=== PATIENT | male | born 1990 | race Caucasian/White ===

== ENCOUNTER 2023-07-31 17:44 | Emergency (ER) | payer BC ==
[2023-07-31] MEDS ORDERED: DIPHENHYDRAMINE 50 MG/ML VIAL ONE (18:17)
[2023-07-31] MEDS ORDERED: dexAMETHasone 10 MG/ML VIAL ONE (18:17)
[2023-07-31] MEDS ORDERED: FAMOTIDINE 20 MG/2 ML VIAL IV ONE (18:17)
[2023-07-31] MEDS ORDERED: NA CHLORIDE 0.9% 1,000 ML ONE (18:18)
[2023-07-31 18:23] LABS: Absolute Lymphocytes (CBC) 2.2 K/uL (0.7-4.9); Hematocrit 35.6 % (39.6-49.0); Lymphocytes % 35.9 % (15.3-44.8); MCV 82.4 fL (80-100); MPV 7.7 fL (7.6-11.3); Platelets 234 thou/uL (152-406); RBC Red Blood Cell Count 4.32 M/uL (4.33-5.43)
--- NOTE | 2023-07-31 18:24 | RAD REPORT ---
EXAM DESCRIPTION: Jordan Single View07/31/2023 6:17 pm CLINICAL HISTORY: Bilateral leg swelling COMPARISON: none FINDINGS: The lungs appear clear of acute infiltrate. The heart is normal size IMPRESSION: No acute abnormalities displayed
[2023-07-31 18:44] LABS: Magnesium 2.4 mg/dL (1.6-2.4); Potassium 3.6 mEq/L (3.5-5.1); Troponin High Sensitivity 6.7 pg/mL (<58.9)
--- NOTE | 2023-07-31 18:50 | ER ---
Nurse's Notes [facility] Name: Niko Greene Age: 33 yrs Sex: Male : 1990 Arrival Date: 07/31/2023 Time: 17:44 Bed 12 Private MD: Diagnosis: Urticaria, unspecified;Edema, unspecified Presentation: 07/31 17:57 Chief complaint: Patient states: Bilateral leg swelling, itching and redness onset cm10 Sunday. Coronavirus screen: Vaccine status: Patient reports being unvaccinated. Client denies travel out of the [place] in the last 14 days. Ebola Screen: Patient denies travel to an Ebola-affected area in the 21 days before illness onset. No symptoms or risks identified at this time. Initial Sepsis Screen: Does the patient meet any 2 criteria? No. Patient's initial sepsis screen is negative. Does the patient have a suspected source of infection? No. Patient's initial sepsis screen is negative. Risk Assessment: Do you want to hurt yourself or someone else? Patient reports no desire to harm self or others. Onset of symptoms was July 31, 2023. 17:57 Method Of Arrival: Ambulatory cm10 17:57 Acuity: JUAN 3 cm10 Historical: - Allergies: 17:58 No Known Allergies; cm10 - PMHx: 17:58 None; cm10 - Immunization history:: Adult Immunizations unknown. - Social history:: Smoking status: Patient denies any tobacco usage or history of. Screenin:[address] [facility] ED Fall Risk Assessment (Adult) History of falling in the last 3 months, mb9 including since admission No falls in past 3 months (0 pts) Confusion or Disorientation No (0 pts) Intoxicated or Sedated No (0 pts) Impaired Gait No (0 pts) Mobility Assist Device Used No (0 pt) Altered Elimination No (0 pt) Score/Fall Risk Level 0 - 2 = Low Risk Oriented to surroundings, Maintained a safe environment, Educated pt \T\ family on fall prevention, incl call for assistance when getting out of bed. Abuse screen: Denies threats or abuse. Nutritional screening: No deficits noted. Tuberculosis screening: No symptoms or risk factors identified. Assessment: 18:25 General: Appears in no apparent distress. Behavior is calm, cooperative, appropriate mb9 for age. Pain: Denies pain. Neuro: Rogers Agitation-Sedation Scale (RASS): 0 - Alert and Calm Level of Consciousness is awake, alert, obeys commands, Oriented to person, place, time, situation, Appropriate for age. Cardiovascular: Denies chest pain, shortness of breath, Heart tones S1 S2 present Patient's skin is warm and dry. Respiratory: Airway is patent Respiratory effort is even, unlabored, Respiratory pattern is regular, symmetrical, Breath sounds are clear bilaterally. GI: Abdomen is flat, non-distended, Bowel sounds present X 4 quads. Abd is soft and non tender X 4 quads. : No signs and/or symptoms were reported regarding the genitourinary system. EENT: No signs and/or symptoms were reported regarding the EENT system. Derm: Skin is pink, warm \T\ dry. Musculoskeletal: Swelling present in right leg and left leg. 19:03 Reassessment: No changes from previously documented assessment. Patient and/or family mb9 updated on plan of care and expected duration. Pain level reassessed. Patient is alert, oriented x 3, equal unlabored respirations, skin warm/dry/pink. Vital Signs: 17:57 BP 121 / 65; Pulse 62; Resp 18; Temp 98.2; Pulse Ox 100% ; Weight 77.11 kg; Height 5 cm10 ft. 10 in. ; Pain 0/10; 19:03 BP 115 / 62; Pulse 60; Resp 16; Pulse Ox 100% on R/A; Pain 0/10; mb9 17:57 Body Mass Index 24.39 (77.11 kg, 177.8 cm) cm10 17:57 Pain Scale: Adult cm10 19:03 Pain Scale: Adult mb9 ED Course: 17:49 Patient arrived in ED. mr 17:50 Shira Kim, MIKIE [facility]. kb 17:50 Stephen Ornelas MD is Attending Physician. kb 17:58 Triage completed. cm10 17:58 Arm band placed on Patient placed in an exam room, on a stretcher. cm10 18:00 Inserted saline lock: 20 gauge in right antecubital area, using aseptic technique. mb9 Blood collected. 18:00 EKG done, by ED staff, reviewed by Shira DELUNA. mb9 18:19 XRAY Chest (1 view) In Process Unspecified. EDMS 18:24 Katlyn New, RN is Primary Nurse. mb9 18:24 Placed in gown. Bed in low position. Call light in reach. Side rails up X 1. Client mb9 placed on continuous cardiac and pulse oximetry monitoring. NIBP monitoring applied. cardiac monitor on. 18:24 Basic Metabolic Panel Sent. mb9 18:24 Magnesium Sent. mb9 18:24 NT PRO-BNP Sent. mb9 18:24 Troponin HS Sent. mb9 18:26 No provider procedures requiring assistance completed. mb9 19:03 IV discontinued, intact, bleeding controlled, No redness/swelling at site. Pressure mb9 dressing applied. Administered Medications: 18:02 Drug: NS 0.9% IV 1000 ml IV at 1000 ml once Route: IV; Rate: 1000 ml; Site: right mb9 antecubital; 19:04 Follow up: Response: No adverse reaction; IV Status: Completed infusion mb9 18:08 Drug: Decadron - Dexamethasone IVP 10 mg IVP once Route: IVP; Site: right antecubital; mb9 19:03 Follow up: Response: No adverse reaction mb9 18:10 Drug: Famotidine IVP 20 mg IVP once; dilute with 10 mL 0.9% NaCl; give over 2 minutes mb9 Route: IVP; Site: right antecubital; 19:03 Follow up: Response: No adverse reaction mb9 18:14 Drug: diphenhydrAMINE IVP 12.5 mg IVP once Route: IVP; Site: right antecubital; mb9 19:03 Follow up: Response: No adverse reaction mb9 Medication: 18:25 VIS not applicable for this client. mb9 Outcome: 18:49 Discharge ordered by . jose 19:03 Discharged to home ambulatory, mb9 19:03 Condition: stable 19:03 Discharge instructions given to patient, Instructed on discharge instructions, follow up and referral plans. Demonstrated understanding of instructions, follow-up care, medications, Prescriptions given X 2, 19:04 Patient left the ED. mb9 Signatures: Dispatcher [employer] EDShira Cole, [employer] SUPERVISOR-C [employer] SUPERVISOR-Katlyn Lomeli, Reg Reg mr [place], RN RN mb9 Dolly Juarez RN RN cm10
--- NOTE | 2023-07-31 18:50 | EDPHYS ---
Physician Documentation [facility] Name: Niko Greene Age: 33 yrs Sex: Male : 1990 Arrival Date: 07/31/2023 Time: 17:44 Bed 12 Private MD: ED Physician Stephen Ornelas HPI: 07/31 18:53 This 33 yrs old Male presents to ER via Ambulatory with complaints of Leg Swelling. kb 18:53 Patient is a 33-year-old male who presents for swelling, redness and itching to kb bilateral lower extremities below the knees. States this started Sunday after running 13 miles and then eating at [employer]. States he had diffuse hives that got better after Benadryl, but itching and swelling to lower extremities did not resolve. States the symptoms have improved since onset.. Historical: - Allergies: 17:58 No Known Allergies; cm10 - PMHx: 17:58 None; cm10 - Immunization history:: Adult Immunizations unknown. - Social history:: Smoking status: Patient denies any tobacco usage or history of. ROS: 18:51 Constitutional: Negative for fever, chills, and weight loss, kb 18:51 MS/extremity: Positive for erythema, swelling, of the bilateral lower extremities , Itching, 18:51 All other systems are negative, Exam: 18:51 Constitutional: This is a well developed, well nourished patient who is awake, alert, kb and in no acute distress. Head/Face: Normocephalic, atraumatic. ENT: Moist Mucous membranes Cardiovascular: Regular rate Respiratory: Respirations even and unlabored. No increased work of breathing. Talking in full sentences MS/ Extremity: Pulses equal, no cyanosis. Neurovascular intact. Full, normal range of motion. Neuro: Awake and alert, GCS 15, oriented to person, place, time, and situation. Moves all extremities. Normal gait. 18:51 Skin: Appearance: normal except for affected area, Color: erythematous, Temperature: normal temperature, swelling, noted on the bilateral lower extremities below knees, Vital Signs: 17:57 BP 121 / 65; Pulse 62; Resp 18; Temp 98.2; Pulse Ox 100% ; Weight 77.11 kg; Height 5 cm10 ft. 10 in. ; Pain 0/10; 19:03 BP 115 / 62; Pulse 60; Resp 16; Pulse Ox 100% on R/A; Pain 0/10; mb9 17:57 Body Mass Index 24.39 (77.11 kg, 177.8 cm) cm10 17:57 Pain Scale: Adult cm10 19:03 Pain Scale: Adult mb9 MDM: 17:50 Patient medically screened. kb 18:50 Differential Diagnosis Urticaria, contact dermatitis, CHF, DVT. Data reviewed: vital kb signs, nurses notes. Test considered but Not performed: Ultrasound Ultrasound lower extremities considered but swelling is bilateral and is getting better since onset. Swelling, itching and redness also started with hives diffusely.. Counseling: I had a detailed discussion with the patient and/or guardian regarding the historical points, exam findings, and any diagnostic results supporting the discharge/admit diagnosis, lab results, radiology results, the need for outpatient follow up, a family practitioner, to return to the emergency department if symptoms worsen or persist or if there are any questions or concerns that arise at home. ED course: Patient has follow-up appointment with PCP on . Will keep appointment and educated on return precautions. 07/31 18:00 Order name: Basic Metabolic Panel; Complete Time: 18:46 kb 07/31 18:00 Order name: CBC with Diff; Complete Time: 18:24 kb 07/31 18:00 Order name: Magnesium; Complete Time: 18:46 kb 07/31 18:00 Order name: NT PRO-BNP; Complete Time: 18:46 kb 07/31 18:00 Order name: Troponin HS; Complete Time: 18:46 kb 07/31 18:00 Order name: XRAY Chest (1 view); Complete Time: 18:26 kb 07/31 18:00 Order name: Cardiac monitoring; Complete Time: 18:24 kb 07/31 18:00 Order name: EKG - Nurse/Tech; Complete Time: 18:24 kb 07/31 18:00 Order name: IV Saline Lock; Complete Time: 18:24 kb 07/31 18:00 Order name: Labs collected and sent; Complete Time: 18:24 kb 07/31 18:00 Order name: O2 Per Protocol; Complete Time: 18:24 kb 07/31 18:00 Order name: O2 Sat Monitoring; Complete Time: 18:24 kb Administered Medications: 18:02 Drug: NS 0.9% IV 1000 ml IV at 1000 ml once Route: IV; Rate: 1000 ml; Site: right mb9 antecubital; 19:04 Follow up: Response: No adverse reaction; IV Status: Completed infusion mb9 18:08 Drug: Decadron - Dexamethasone IVP 10 mg IVP once Route: IVP; Site: right antecubital; mb9 19:03 Follow up: Response: No adverse reaction mb9 18:10 Drug: Famotidine IVP 20 mg IVP once; dilute with 10 mL 0.9% NaCl; give over 2 minutes mb9 Route: IVP; Site: right antecubital; 19:03 Follow up: Response: No adverse reaction mb9 18:14 Drug: diphenhydrAMINE IVP 12.5 mg IVP once Route: IVP; Site: right antecubital; mb9 19:03 Follow up: Response: No adverse reaction mb9 Disposition Summary: 07/31/23 18:49 Discharge Ordered Notes: Location: Home kb Condition: Stable kb Diagnosis - Urticaria, unspecified kb - Edema, unspecified kb Followup: kb - With: Emergency Department - When: As needed - Reason: Worsening of condition Followup: kb - With: Private Physician - When: 2 - 3 days - Reason: Recheck today's complaints, Continuance of care, Re-evaluation by your physician Discharge Instructions: - Discharge Summary Sheet kb - Hives, [id number] kb - Peripheral Edema kb Forms: - Medication Reconciliation Form kb - Thank You Letter kb - Antibiotic Education kb - Prescription Opioid Use kb - Patient Portal Instructions kb - Leadership Thank You Letter kb Prescriptions: - Pepcid 20 mg Oral Tablet - take 1 tablet ORAL route every 12 hours for 5 days; 10 tablet; Refills: 0, kb Product Selection Permitted - Prednisone 20 mg Oral Tablet - take 1 tablet ORAL route once daily for 5 days; 5 tablet; Refills: 0, Product kb Selection Permitted Signatures: Dispatcher [employer] EDShira Cole FNP-C FNP-Ckb Breneman, Mary Beth RN RN mb9 Dolly Juarez RN RN cm10 Corrections: (The following items were deleted from the chart) 18:20 18:01 [id number] ordered. EDMS EDMS
[2023-07-31 19:55] VITALS: TEMP 98.2; O2SAT 100
[2023-07-31 19:56] VITALS: BP 115/62
== END 2023-07-31 19:04 | disposition home or self-care (01) ==
LOC: ER 17:44
DX: L50.9 Urticaria, unspecified (principal); R60.9 Edema, unspecified
CPT/HCPCS: 96361; 93005; 85025; 80048; 36415; 83735; 84484; 83880; 71045; 96375; 96374; 99285; J1200; J1100; J7030